=== PATIENT | female | born 1965 | race Caucasian/White ===

== ENCOUNTER → 2021-10-02 10:28 | Outpatient (BNVA) | payer OTHER, SELFPAY | PROVIDERS: Visit Provider Physician Assistant | DX: S93.401A Sprain of unspecified ligament of right ankle, initial encounter (principal); X58.XXXA Exposure to other specified factors, initial encounter | CPT/HCPCS: 99203 ==

== ENCOUNTER → 2021-10-15 11:10 | Outpatient (BNVA) | payer OTHER, SELFPAY | PROVIDERS: PCP Internal Medicine; Visit Provider Physician Assistant Medical | DX: S93.401D Sprain of unspecified ligament of right ankle, subsequent encounter (principal); X58.XXXD Exposure to other specified factors, subsequent encounter | CPT/HCPCS: 99213 ==

== ENCOUNTER 2021-11-11 16:00 | Outpatient (RCR) | payer OTHER, BC, SELFPAY ==
--- NOTE | 2021-10-06 13:44 | MHC.PT.EP ---
[facility] [employer] [facility] [employer] [facility] [place] Office [address] Sylvia Braun [address] [phone] F: [phone] F: [phone] F: [phone] F: [phone] Physical Therapy Plan of Care Date of Evaluation: Date of Surgery: N/A Diagnosis: R ANKLE SPRAIN Assessment: Pt is a 55yo F who presents to PT s/p R eversion ankle sprain on 09/04/21. She presents today with current impairments in mild residual swelling, decreased ROM, decreased strength, decrease muscle length, impaired gait, and decreased balance. She is TTP throughout R medial ankle ligaments. She is limited functionally by prolonged standing, walking, stairs, driving, and getting in/out of the bathtub. She is an excellent candidate for skilled PT services to address current impairments in order to facilitate return to PLOF. She will be seen 2x/week for 4 weeks and will be reassessed at that time. Frequency and Duration: The patient will be seen 2x/week for 4 weeks Short Term Goals: Pt will be I with HEP to promote self management of symptoms Pt will improve DF by at least 5 deg Beach Attendant Goals: Pt will demonstrate full ROM and strength throughout R ankle Pt will tolerate standing > 1 hour to assist with work related tasks Pt will demonstrate improvements in functional mobility as evidenced by statistically significant improvement in LEFI outcome measure Treatment Plan: Modalities to reduce pain, spasms and effusion. Manual therapy to restore motion and function. Therapeutic exercise to improve strength and flexibility. Neuromuscular re-education for posture and balance. Therapeutic activities to return to functional activities of daily living. Electronically signed by: Mere Vazquez, PT, DPT Please sign and return to therapist. Thank you for your referral.
--- NOTE | 2021-11-11 18:02 | MHC.PT.DC ---
[facility] [place] [facility] [place] Office [place] Office [address] Sylvia Braun [address] [phone] F: [phone] F: [phone] F: [phone] F: [phone] Physical Therapy Discharge Report Diagnosis: R ANKLE SPRAIN Date of Surgery: N/A Date of Evaluation: 10/06/21 Date of Discharge: 11/11/21 Treatments to Date: 7 Cancellations to Date: 1 No Shows to Date: 3 Discharge Status: Achieved Goals Improved Function Independent with HEP Discharge Summary: Pt made excellent progress since SOC. She has improved ROM and strength throughout RLE. She has no pain in R ankle. She has met her STGs and LTGs. She has improved her outcome on LEFI outcome measure from 42/80 on initial PT evaluation to 76/80 today. She is I with HEP. Pt is being D/C from skilled PT services at this time. Pt reports no further questions or concerns for PT at this time. Electronically signed by: Mere Vazquez, PT, DPT Please sign and return to therapist. Thank you for your referral.
== END 2021-11-11 18:01 | disposition home or self-care (01) ==
LOC: HO.PT 16:00
PROVIDERS: PCP Internal Medicine; Visit Provider Physician Assistant Medical
DX: S93.401D Sprain of unspecified ligament of right ankle, subsequent encounter (principal)
CPT/HCPCS: 97110; 97112; 97140; 97161; 97530

== ENCOUNTER 2023-07-25 11:44 | Emergency (ER) | payer OTHER, SELFPAY ==
--- NOTE | ~2023-07-25 | CT_ITS ---
EXAMINATION: CT HEAD WITHOUT CONTRAST CT CERVICAL SPINE WITHOUT CONTRAST CLINICAL INFORMATION: Head pressure status post minor trauma. COMPARISON: No relevant prior imaging. TECHNIQUE: Change Lead images were obtained. CT imaging of the head and cervical spine was performed without contrast. Data was reformatted into multiplanar images at the acquisition workstation. This CT examination was performed using dose optimization techniques as appropriate, including one or more of the following: Automated exposure control, iterative reconstruction, and adjustment of technique factors (mA and/or kVp) according to patient size (this includes techniques or standardized protocols for targeted exams where dose is matched to indication/reason for exam). Fleischner Society criteria for the followup of incidental pulmonary nodules was implemented if appropriate. DLP: 1240 mGy-cm. FINDINGS: Head: There is no acute intracranial hemorrhage or abnormal extra-axial collection. No intracranial mass effect or midline shift. Lateral and third ventricles are normal. No hydrocephalus. Jeffries-white matter differentiation is preserved and there is no evidence of acute territorial infarct. The calvarium and skull base are intact. Mastoid air cells and middle ear cavities are well aerated. No active paranasal sinus disease. Cervical spine: There chronic changes of an anterior cervical discectomy and fusion. Hardware and bridging bone fuses the C5 and C6 vertebral segments. No evidence of hardware loosening or failure. Spinal alignment is normal in the sagittal dimension. Vertebral body heights are preserved. No evidence of acute fracture. No abnormal prevertebral soft tissue swelling. Grossly no spinal canal compromise. No bony neuroforaminal encroachment. Visualized soft tissues of the neck are normal. Lung apices are clear. CT/CT cervical spine wo IV con IMPRESSION: Head: No acute intracranial hemorrhage. Cervical spine: There are chronic changes of an anterior cervical discectomy and fusion at C5-C6. No evidence of hardware loosening or failure. No acute fracture and no posttraumatic spinal subluxation.
--- NOTE | ~2023-07-25 | CT_ITS ---
EXAMINATION: CT HEAD WITHOUT CONTRAST CT CERVICAL SPINE WITHOUT CONTRAST CLINICAL INFORMATION: Head pressure status post minor trauma. COMPARISON: No relevant prior imaging. TECHNIQUE: Commercial [employer] Agent images were obtained. CT imaging of the head and cervical spine was performed without contrast. Data was reformatted into multiplanar images at the acquisition workstation. This CT examination was performed using dose optimization techniques as appropriate, including one or more of the following: Automated exposure control, iterative reconstruction, and adjustment of technique factors (mA and/or kVp) according to patient size (this includes techniques or standardized protocols for targeted exams where dose is matched to indication/reason for exam). Fleischner Society criteria for the followup of incidental pulmonary nodules was implemented if appropriate. DLP: 1240 mGy-cm. FINDINGS: Head: There is no acute intracranial hemorrhage or abnormal extra-axial collection. No intracranial mass effect or midline shift. Lateral and third ventricles are normal. No hydrocephalus. Jeffries-white matter differentiation is preserved and there is no evidence of acute territorial infarct. The calvarium and skull base are intact. Mastoid air cells and middle ear cavities are well aerated. No active paranasal sinus disease. Cervical spine: There chronic changes of an anterior cervical discectomy and fusion. Hardware and bridging bone fuses the C5 and C6 vertebral segments. No evidence of hardware loosening or failure. Spinal alignment is normal in the sagittal dimension. Vertebral body heights are preserved. No evidence of acute fracture. No abnormal prevertebral soft tissue swelling. Grossly no spinal canal compromise. No bony neuroforaminal encroachment. Visualized soft tissues of the neck are normal. Lung apices are clear. CT/CT head/brain wo IV con IMPRESSION: Head: No acute intracranial hemorrhage. Cervical spine: There are chronic changes of an anterior cervical discectomy and fusion at C5-C6. No evidence of hardware loosening or failure. No acute fracture and no posttraumatic spinal subluxation.
--- NOTE | 2023-07-25 12:24 | ED_ITS ---
HPI - Head Injury General Chief complaint: Head Injury Stated complaint: Head Pain Work Injury 07/23/23 Time Seen by Provider: 07/25/23 15:59 Source: patient Mode of arrival: ambulatory Limitations: no limitations History of Present Illness HPI Narrative: 57 y o female with PSH spinal fusion presenting for evaluation of head strike 2 days ago. Patient states she was at work and leaning forward when an object fell (6.5lb binder) and struck her on the back of her head. She reports a generalized headache and head pressure since the event. She also endorses an episode of dizziness and associated nausea last night which she states has resolved today. She endorses intermittent difficulty concentrating and states that earlier today she attempted to grab her badge but grabbed her credit card and states she also wrote a sentence and when reading it back realized it was missing many words. Denies blurry vision or visual changes, slurred speech, unsteady gait, and vomiting. Also denies chest pain, shortness of breath, numbness and tingling. not on blood thinners Related Data Previous Rx's Medication Instructions Recorded cyclobenzaprine 10 mg tablet 10 mg PO BEDTIME PRN muscle spasm 07/25/23 #7 tabs lidocaine 5 % topical patch 1 patch topical DAILY PRN pain #15 07/25/23 ea Allergies Allergy/AdvReac Type Severity Reaction Status Date / Time gentamicin [GENTAMICIN] Allergy Unknown EYES Unverified 07/31/20 15:54 INFLAMMED Penicillins [PENICILLINS] Allergy Unknown SOB/RASH Unverified 07/31/20 15:54 From PHENERGAN Allergy Unknown SHORTNESS Uncoded 07/31/20 15:54 OF BREATH Review of Systems Review of Systems: Constitutional : No Weight loss, No Fever, No Chills, No Fatigue, No Malaise ENT/Mouth : No sore throat, No Rhinorrhea Eyes: No Eye Pain, No Swelling, No Redness Cardiovascular : No Chest Pain, No SOB, No Dyspnea on Exertion, No Orthopnea, No Edema, No Palpitations Respiratory : No Cough, No Sputum, No Wheezing Gastrointestinal : +Nausea, No Vomiting, No Diarrhea, No Constipation, No abdominal Pain, No Hematochezia, No Melena Genitourinary : No Dysuria, No Urinary Frequency, No Hematuria, Musculoskeletal : + joint pain, No Myalgias, No Joint Swelling Skin : No Skin Lesions, No rash Neuro : No Weakness, No Numbness, +Dizziness, + Headache, +difficulty concentrating Heme/Lymph: No Bruising, No Bleeding,No Lymphadenopathy Endocrine : No Polyuria, No Polydipsia All other systems reviewed and are negative Yes all other systems are reviewed and are negative [facility] Past Medical History Attestation statement: The following information was validated with the patient. Source: old records reviewed and nursing notes reviewed Social History Social History Advance Directives: No Advance Directives Information Provided: Yes Physical Exam Vital Signs: Vital Signs: Last Vital Signs Temp 97.8 F 07/25/23 12:25 Pulse 76 07/25/23 12:25 Resp 18 07/25/23 12:25 BP 135/70 07/25/23 12:25 Pulse Ox 93 07/25/23 12:25 O2 Del Method Room Air 07/25/23 12:25 BMI result Body Mass Index 36.8 Appearance: Alert.? Oriented X3.? No acute distress.? Head: Normocephalic, atraumatic, no step-offs or deformities. +TTP of the occiput b/l ( paraspinoous muscles) Eyes: Pupils equal, round and reactive to light.? ENT: Pharynx normal.??External ears normal, TMs normal bilaterally and EAC's normal. No pain with manipulation of external ears bilaterally. No mastoid tenderness. Neck: Normal inspection.? Neck supple.?+TTP of paraspinous musculature along the cervical spine. Full ROM of the neck including flexion/extension, lateral flexion and lateral rotation CVS: Normal heart rate and rhythm.? Pulses normal.? Respiratory: No respiratory distress.? Breath sounds normal.? Skin: Skin warm and dry.? Normal skin color.? Normal skin turgor.? Extremities: No lower extremity edema.? No calf ttp. 5/5 strength to bilateral upper and lower extremities Back: No midline tenderness, no C-spine tenderness, full range of motion, no CVA tenderness bilaterally Neuro: Oriented X 3.? No motor deficit.? No sensory deficit. CN 2-12 intact. Negative Romberg. No pronator drift. No nystagmus . Normal [id number]. Normal byfi-ap-oqar. Steady tandem gait. Course Course Course Narrative: RME - 57 yo female presenting to the ER for evaluation of head and neck pain after a patient chart (weight 6-7 lbs) fell on her head 2 days ago. She had im mediate jaw, head and neck pain when it fell onto her head. Reports ongoing head pressure, jaw pain, neck pain with limited ROM. today had hard time writing and was told to come to the ER for evaluation. hx cervical fusion. nonfocal neurologically in triage. Plan: CT head and cervical spine Medical Decision Making Medical Decision Making MDM Narrative: 57 y o female presenting for evaluation of generalized headache x2 days following headstrike of 6.5lb binder falling on her head while bent forward. Reporting one episode of dizziness and nausea last night which has since resolved but also c/o intermittent difficulty in concentration. PE demonstrates +TTP of the occiput b/l and +TTP of paraspinous musculature along the cervical spine. Full ROM of the neck including flexion/extension, lateral flexion and lateral rotation CT Head and Neck ordered in triage. CT head demonstrated no acute intracranial hemorrhage. CT cervical spine demonstrated chronic changes of an anterior cervical discectomy and fusion at C5-C6. No evidence of hardware loosening or failure. No acute fracture and no posttraumatic spinal subluxation. Likely closed head injury vs concussion vs whiplash injury vs migraine. Unlikely occult hemorrhage or bleed with no focal neuro deficits, no slurring of speech or ataxia, and no vomiting or unequal pupils. No evidence of hematoma or ecchymosis. Plan for discharge home with cyclobenzaprine and Tylenol PRN for pain and supportive care instructions. Patient instructiosn provided to return if worsening of symptoms . Educated patient on diagnosis and treatment plan, answered all question, patient verbalizes understanding. At this time patient will be discharged home, advised to return with new or worsening symptoms. Educated on worrisome signs and symptoms and when to return. At this time I feel comfortable discharge home. Differential Diagnosis Differential Diagnoses: The differential diagnosis associated with the presentation includes Likely closed head injury vs concussion vs whiplash injury vs migraine. Unlikely occult hemorrhage or bleed with no focal neuro deficits, no slurring of speech or ataxia, and no vomiting or unequal pupils. No evidence of hematoma or ecchymosis. Admission/Observation Consideration of admission/observation: Escalation of care including admission/observation considered unlikely Independent Interpretation I performed an independent interpretation of an: CT Scan ( CT/CT head/brain wo IV con IMPRESSION: Head: No acute intracranial hemorrhage. Cervical spine: There are chronic changes of an anterior cervical discectomy and fusion at C5- C6. No evidence of hardware loosening or failure. No acute fracture and no posttraumatic spinal subluxation. ) Discharge Plan Discharge Clinical Impression: Closed head injury, Concussion without loss of consciousness, Work related injury Patient Disposition: Home, Self-Care Instructions: Concussion (ED), Head Injury (ED), Post Concussion Syndrome (ED) Additional Instructions: Take your medications as prescribed. If you were prescribed antibiotics today, it is important that you take your medication to their entirety, do not skip any doses, do not finish them early. Follow-up with your primary care provider this week. Return to the emergency department with new or worsening symptoms. In case of emergency call 911 Follow up with the work connection. Look out for signs and symptoms for post concussion syndrome. If they arise, seek medical attention. Rest your brain by limiting screen time, physical activity. Your CT scan demonstrated Head: No acute intracranial hemorrhage. Cervical spine: There are chronic changes of an anterior cervical discectomy and fusion at C5-C6. No evidence of hardware loosening or failure. No acute fracture and no posttraumatic spinal subluxation. 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 Do NOT drive or use alcohol when taking the Cyclobenzaprine. Prescriptions: New cyclobenzaprine 10 mg tablet 10 mg PO BEDTIME PRN (Reason: muscle spasm) Qty: 7 0RF lidocaine 5 % adhesive patch,medicated 1 patch topical DAILY PRN (Reason: pain) Qty: 15 0RF Rx Instructions: leave on most painful area for up to 12 hrs Referrals: Bryn Schreiber MD [Primary Care Provider] - 1 day Stand Alone Forms: Work/School Release Interventions: ED Discharge Assessment Last Done: 07/25/23 17:11 Discharge Date/Time: 07/25/23 17:12
[2023-07-25 12:25] VITALS: BP 135/70; PULSE 76; RESP 18; TEMP 36.6; O2SAT 93; BMI 36.8
== END 2023-07-25 17:12 | disposition home or self-care (01) ==
PROVIDERS: Emergency Provider Emergency Medicine; PCP Internal Medicine
DX: S06.0X0A Concussion without loss of consciousness, initial encounter (principal); R51.9 Headache, unspecified; R42 Dizziness and giddiness; M54.2 Cervicalgia; R11.0 Nausea; Y29.XXXA Contact with blunt object, undetermined intent, initial encounter; Y93.9 Activity, unspecified; Y92.9 Unspecified place or not applicable; Y99.9 Unspecified external cause status; Z79.899 Other long term (current) drug therapy
CPT/HCPCS: 70450; 72125; 99282; 99284

== ENCOUNTER → 2023-07-28 09:24 | Outpatient (BNVA) | payer OTHER, SELFPAY | PROVIDERS: PCP Internal Medicine; Visit Provider Internal Medicine | DX: S06.0X0A Concussion without loss of consciousness, initial encounter (principal); S16.1XXA Strain of muscle, fascia and tendon at neck level, initial encounter; W20.8XXA Other cause of strike by thrown, projected or falling object, initial encounter; R51.9 Headache, unspecified; M54.2 Cervicalgia | CPT/HCPCS: 99203 ==

== ENCOUNTER → 2023-08-01 09:05 | Outpatient (BNVA) | payer OTHER, SELFPAY | PROVIDERS: PCP Internal Medicine; Visit Provider Internal Medicine | DX: S06.0X0A Concussion without loss of consciousness, initial encounter (principal); S00.83XA Contusion of other part of head, initial encounter; W20.8XXA Other cause of strike by thrown, projected or falling object, initial encounter | CPT/HCPCS: 99213 ==